=== PATIENT | female | born 1960 | race Hispanic/Latino ===

== ENCOUNTER 2017-02-01 11:31 | Outpatient (CLI) | payer OTHER ==
[2017-02-01 12:32] LABS: Blood Urea Nitrogen 18 mg/dL (7-17)
--- NOTE | 2017-02-01 14:55 | Cat Scan Report ---
CT ABDOMEN AND PELVIS WITH CONTRAST INDICATION: Pyelonephritis. COMPARISON: None similar. FINDINGS: Abdomen and pelvis CT performed following oral contrast and intravenous administration of 100 cc of Omnipaque 300. LUNG BASES: Nonspecific distal esophageal wall thickening, not excluded for gastroesophageal reflux and/or hiatal hernia, amongst others. ABDOMEN: Gallbladder surgically absent. Bilateral renal cortical hypodensities/cysts, left much greater in number than the right. Largest right renal cyst medially is 2.3 x 1.3 cm, axial image 41, series 4. Few left renal lesions not excluded complex/hemorrhagic. One measuring 3.5 x 2.1 cm on axial image 40, series 4 demonstrates an intrinsic eccentric 1.3 cm faint peripheral hyperdense nodularity. Approximately 2.9 cm partly exophytic left lower renal pole simple cyst, axial image 49. Axial images 29-32 also demonstrate a partly exophytic left upper renal pole density with few small intrinsic calcifications and upper pole cortical scarring. No hydronephrosis. Nonobstructive opacified small bowel. Normal appendix. Approximately 8 cm segment of proximal ascending colon however on coronal images 110-170 nondistended with exaggerated wall thickness. Subtle surrounding prominent vascularity/stranding. Some colonic stool however noted both proximal and distal to it. Mild to moderate transverse colon stool. Normal descending colon. Liver, spleen, pancreas, adrenals, nonaneurysmal abdominal aorta and IVC within normal limits. Ventral wall mesh hernia repair without significant recurrence. PELVIS: Approximately 0.6 cm possible uterine fundal fibroid towards the right, axial image 75. Small rectouterine pelvic staple. Unremarkable urinary bladder, adnexa/ovaries and rectosigmoid. No free fluid or significant adenopathy. Mild lower thoracic spine degenerative spurring. Sternotomy wires. Approximately 1 cm anterior abdominal subcutaneous near midline focus of possible fat necrosis, axial image 34, series 2. CONCLUSION: 1. Nondistended/possibly thickened approximately 8 cm proximal ascending colon segment. Colitis may be correlated for clinically, though an underlying neoplasm remains to be excluded. 2. No acute renal CT abnormality or evidence of pyelonephritis. Numerous bilateral renal cysts though noted, including few complex on the left. 3. Various other incidental findings, including prior sternotomy, cholecystectomy, ventral wall mesh hernia repair, normal appendix and a possible small fibroid, amongst others, as above. Thank you for the opportunity to participate in this patient's care.
== END 2017-02-01 11:32 | disposition home or self-care (01) ==
LOC: CT 11:31
PROVIDERS: ATTEND Internal Medicine Nephrology
DX: N12 Tubulo-interstitial nephritis, not specified as acute or chronic (principal)
CPT/HCPCS: 36415; 74177; 82565; 84520; Q9967